=== PATIENT | female | born 1965 | race Caucasian/White ===

== ENCOUNTER 2022-07-02 22:25 | Emergency (ER) | payer SELFPAY ==
[~2022-07-02] VITALS: Ht 157.5 cm; Wt 73.0 kg
[2022-07-03] MEDS ORDERED: LIDOCAINE HCL/PF 1% 10 MG/ML 5ML VIAL INFIL ONE
[2022-07-03] MEDS ORDERED: ACETAMINOPHEN WITH CODEINE 300/30MG TABLET PO ONE
[2022-07-03] MEDS ORDERED: TETANUS, DIPHTHERIA, PERTUSSIS VAC/PF 0.5ML (>10YR OLD) IM ONE
[2022-07-03] MEDS ORDERED: BACITRACIN ZINC OINT UDPKT TOP ONE
[2022-07-03] MEDS ORDERED: BO1 TP (01:35)
[2022-07-03 02:16] VITALS: BP 114/78
== END 2022-07-03 02:00 | disposition home or self-care (01) ==
LOC: ER 22:25
DX: S01.81XA Laceration without foreign body of other part of head, initial encounter (principal); S02.2XXA Fracture of nasal bones, initial encounter for closed fracture; Z98.51 Tubal ligation status; Z90.710 Acquired absence of both cervix and uterus; W18.2XXA Fall in (into) shower or empty bathtub, initial encounter; Y93.E1 Activity, personal bathing and showering; Y92.012 Bathroom of single-family (private) house as the place of occurrence of the external cause
CPT/HCPCS: 12013; 70450; 70486; 90471; 90715; 99284; J3490; Z7610